=== PATIENT | female | born 1970 | race Caucasian/White ===

== ENCOUNTER → 2016-08-15 | Outpatient (CLI) | payer BC ==
[2016-08-15 09:37] LABS: BUN/CREATININE RATIO 18 (0-10)
== END ==
LOC: LAB 08:21
PROVIDERS: Emergency Medicine
DX: D03.8 Melanoma in situ of other sites (principal); F41.1 Generalized anxiety disorder; I10 Essential (primary) hypertension; J02.9 Acute pharyngitis, unspecified; J06.9 Acute upper respiratory infection, unspecified; J30.89 Other allergic rhinitis; K21.9 Gastro-esophageal reflux disease without esophagitis; M13.151 Monoarthritis, not elsewhere classified, right hip; M13.851 Other specified arthritis, right hip; M13.852 Other specified arthritis, left hip; R10.817 Generalized abdominal tenderness; R50.9 Fever, unspecified
CPT/HCPCS: 36415; 80053; 80061; 83704

== ENCOUNTER → 2021-03-15 | Outpatient (CLI) | payer BC ==
[~2021-03-15] MED LIST: KEFLEX CAP 500500 MG PO; PERCOCET 5/325 T1 EA PO; PHENERGAN 25 MG25 M1 PO
[2021-03-15 09:12] LABS: BUN/CREATININE RATIO 20 (0-10)
== END ==
LOC: LAB 08:20
PROVIDERS: Emergency Medicine
DX: I10 Essential (primary) hypertension (principal); K21.9 Gastro-esophageal reflux disease without esophagitis; F41.1 Generalized anxiety disorder; E78.2 Mixed hyperlipidemia
CPT/HCPCS: 36415; 80053; 80061; 83704

== ENCOUNTER → 2021-03-29 | Outpatient (CLI) | payer BC ==
[~2021-03-29] MED LIST changes: +AMBIEN5 MG PO; +CIPRO500 MG PO; +COLACE 100MG C100 MG PO; +COZAAR 50MG TAB50 MG PO; +HYDROCODON-ACE1 EAC6 PO; +IBUPROFEN600 MG PO; +OMEPRAZOLE20 MG PO; +SERTRALINE HCL100 MG PO; +ZYRTEC10 MG PO
== END ==
LOC: KOH-I 12:21
DX: R10.9 Unspecified abdominal pain (principal); R31.0 Gross hematuria; R93.3 Abnormal findings on diagnostic imaging of other parts of digestive tract
CPT/HCPCS: 74176

== ENCOUNTER → 2021-11-07 | Outpatient (CLI) | payer BC ==
[2021-11-07 11:11] LABS: HEMOGLOBIN 14.4 gm/dl (12.3-15.3); RED BLOOD COUNT 4.75 M/UL (4.00-5.10); WHITE BLOOD COUNT 7.6 K/UL (4.5-11.0)
[2021-11-07 13:10] LABS: BUN/CREATININE RATIO 23 (0-10)
[2021-11-08 14:10] LABS: CHOLESTEROL, TOTAL 180 mg/dL (100-199); HDL SIZE 9.3 nm (>=9.2); HDL-C 56 mg/dL (>39); HDL-P (TOTAL) 35.8 umol/L (>=30.5); LARGE HDL-P 5.3 umol/L (>=4.8); LARGE VLDL-P 2.7 nmol/L (<=2.7); LDL SIZE 20.7 nm (>20.5); LDL SIZE 20.7 nm (>=20.8); LDL-C 109 mg/dL (0-99); LDL-P 1321 nmol/L (<1000); LP-IR SCORE 52 (<=45); SMALL LDL-P 714 nmol/L (<=527); TRIGLYCERIDES 84 mg/dL (0-149); VLDL SIZE 49.4 nm (<=46.6)
== END ==
LOC: LAB 10:31
PROVIDERS: Emergency Medicine
DX: I10 Essential (primary) hypertension (principal); K21.9 Gastro-esophageal reflux disease without esophagitis; F41.1 Generalized anxiety disorder; E78.2 Mixed hyperlipidemia; Z88.5 Allergy status to narcotic agent
CPT/HCPCS: 36415; 80053; 80061; 83704; 84443; 85025

== ENCOUNTER 2022-01-23 13:12 | Inpatient (IN) | payer BC ==
[~2022-01-23] VITALS: Ht 165.1 cm; Wt 61.2 kg
[2022-01-23 14:01] LABS: HEMOGLOBIN 14.8 gm/dl (12.3-15.3); RED BLOOD COUNT 5.31 M/UL (4.00-5.10); WHITE BLOOD COUNT 13.9 K/UL (4.5-11.0)
[2022-01-23 14:31] LABS: BUN/CREATININE RATIO 28 (0-10)
--- NOTE | 2022-01-23 23:31 | NUR ---
@2300 NOTIFIED HOSPITALIST OF PHQ-9 SCORE OF 19. PT NOT SI, HAS NEVER HAD PLAN OR ATTEMPTED SUICIDE, PT IS CANCER PT NEWLY DIAGNOSED AND IS DEPRESSED, HOSPITALIST STATED TO START LEXAPRO DAILY AND CONSULT CASE MANAGEMENT FOR OLOP EVAL.
[2022-01-24 04:14] LABS: HEMOGLOBIN 13.1 gm/dl (12.3-15.3); RED BLOOD COUNT 4.96 M/UL (4.00-5.10); WHITE BLOOD COUNT 12.4 K/UL (4.5-11.0)
[2022-01-24 04:37] LABS: BUN/CREATININE RATIO 25 (0-10)
[2022-01-24] MEDS ORDERED: ONDANSETRON4 MG/5 ML JT (13:24)
[2022-01-24] MEDS ORDERED: AMLODIPINE BESY10 MG PO (13:25)
[2022-01-24] MEDS ORDERED: GABAPENTIN300 MG JT (13:25)
[2022-01-24] MEDS ORDERED: ROXANOL SOLN20 MG/M1 JT (13:29)
[2022-01-24] MEDS ORDERED: BACLOFEN10 MG PO (13:30)
[2022-01-24] MEDS ORDERED: BUSPIRONE HCL5 MG PO (13:30)
[2022-01-24] MEDS ORDERED: DIPHENOXYLATE-1 EACH JT (13:31)
[2022-01-24] MEDS ORDERED: FLUOXETINE20 MG/5 ML JT (13:32)
[2022-01-24] MEDS ORDERED: ESOMEPRAZOLE MA40 M1 JT (13:32)
[2022-01-24] MEDS ORDERED: IMODIUM CAP 2 MG2 MG JT (13:33)
[2022-01-24] MEDS ORDERED: METHADONE10 MG/1 M1 JT (13:38)
--- NOTE | 2022-01-24 13:54 | NUR ---
PATIENT TAKEN TO PCU ROOM 6102 AT THIS TIME, PATIENT ALERT AND ORIENTED X4. VSS. REPORT GIVEN TO HUONG BONILLA ON PCU. PT TRANSFERRED VIA STRETCHER, PATIENT FAMILY AT BEDSIDE, AND BELONGINGS AT BEDSIDE. IV'S PATENT; SITE CLEAN DRY AND INTACT.
[2022-01-24 15:13] LABS: HEMOGLOBIN 12.1 gm/dl (12.3-15.3); WHITE BLOOD COUNT 10.7 K/UL (4.5-11.0)
[2022-01-24 15:14] LABS: RED BLOOD COUNT 4.44 M/UL (4.00-5.10)
[2022-01-25 04:27] LABS: HEMOGLOBIN 12.7 gm/dl (12.3-15.3); RED BLOOD COUNT 4.58 M/UL (4.00-5.10); WHITE BLOOD COUNT 12.7 K/UL (4.5-11.0)
[2022-01-25 04:49] LABS: BUN/CREATININE RATIO 34 (0-10)
[2022-01-26 07:13] LABS: HEMOGLOBIN 12.7 gm/dl (12.3-15.3); RED BLOOD COUNT 4.69 M/UL (4.00-5.10); WHITE BLOOD COUNT 11.6 K/UL (4.5-11.0)
[2022-01-26 07:59] LABS: BUN/CREATININE RATIO 31 (0-10)
[2022-01-27 03:11] LABS: HEMOGLOBIN 12.5 gm/dl (12.3-15.3); RED BLOOD COUNT 4.54 M/UL (4.00-5.10); WHITE BLOOD COUNT 12.6 K/UL (4.5-11.0)
[2022-01-27 03:44] LABS: BUN/CREATININE RATIO 31 (0-10)
[2022-01-28 09:46] LABS: HEMOGLOBIN 12.2 gm/dl (12.3-15.3); RED BLOOD COUNT 4.38 M/UL (4.00-5.10); WHITE BLOOD COUNT 10.1 K/UL (4.5-11.0)
[2022-01-28 10:06] LABS: BUN/CREATININE RATIO 28 (0-10)
[2022-01-29 02:12] LABS: BUN/CREATININE RATIO 22 (0-10)
[2022-01-29] MEDS ORDERED: POTASSIUM20 MEQ/15 JT (11:33)
[2022-01-29] MEDS ORDERED: ENOXAPARIN60 MG/0.6 SC (11:33)
[2022-01-29] MEDS ORDERED: ROXANOL SOLN20 MG/M1 JT (13:25)
[2022-01-29 13:47] LABS: BUN/CREATININE RATIO 24 (0-10)
--- NOTE | 2022-01-29 16:36 | NUR ---
SPOKE WITH MIC TRIAGE NURSE WITH [facility] AND GAVE REPORT ON PATIENT. STATES SHE WILL GET ALL OF THE INFORMATION TOGETHER.
== END 2022-01-29 15:56 | disposition short-term general hospital (02) | DRG 299 ==
LOC: ER1 13:12 → M/S 18:04 → CDU 18:04 → M/S 20:45 → PROG CARE 01-24 14:03
PROVIDERS: Emergency Medicine; Internal Medicine Infectious Disease; ADMIT Internal Medicine
PROC: 02HV33Z Insertion of Infusion Device into Superior Vena Cava, Percutaneous Approach (ICD-10-PCS; principal; 2022-01-23)
DX: I82.411 Acute embolism and thrombosis of right femoral vein (principal); I26.99 Other pulmonary embolism without acute cor pulmonale; E87.2 Acidosis; E87.1 Hypo-osmolality and hyponatremia; C25.9 Malignant neoplasm of pancreas, unspecified; R65.10 Systemic inflammatory response syndrome (SIRS) of non-infectious origin without acute organ dysfunction; I82.431 Acute embolism and thrombosis of right popliteal vein; E86.0 Dehydration; E87.6 Hypokalemia; E83.42 Hypomagnesemia; R53.83 Other fatigue; L89.152 Pressure ulcer of sacral region, stage 2; I10 Essential (primary) hypertension; Z20.822 Contact with and (suspected) exposure to COVID-19; E83.39 Other disorders of phosphorus metabolism; Z98.890 Other specified postprocedural states; Z88.8 Allergy status to other drugs, medicaments and biological substances; Z82.49 Family history of ischemic heart disease and other diseases of the circulatory system; Z79.899 Other long term (current) drug therapy
CPT/HCPCS: 36415; 71045; 80048; 80053; 81001; 82962; 83605; 83735; 84100; 84132; 85025; 85610; 85730; 87040; 87086; 93005; 93970; 96374; 96375; 96376; 99285; J1170; J1644; J1650; J2270; J2405; J2543; J2550; J3370; J3480; J7030; J7070; Q9967; U0002